=== PATIENT | female | born 1985 | race Caucasian/White ===

== ENCOUNTER 2019-02-09 04:20 | Emergency (ER) | payer MEDICARE, OTHER ==
[2019-02-09] MEDS: HYDROCODONE/APAP (5/325) TAB PO (05:09)
[2019-02-09] MEDS: ONDANSETRON (ODT) 4 MG TAB ODT (05:09)
[2019-02-09] MEDS: IBUPROFEN 200 MG TAB PO (05:10)
== END 2019-02-09 11:11 | disposition left against medical advice (07) ==
LOC: FTE 11:11
DX: S20.211A Contusion of right front wall of thorax, initial encounter (principal); V49.59XA Passenger injured in collision with other motor vehicles in traffic accident, initial encounter
CPT/HCPCS: 71250; 81025; 93005; 99284-25